=== PATIENT | female | born 1995 | race Caucasian/White ===

== ENCOUNTER 2017-10-06 09:47 | Emergency (ER) | payer OTHER ==
[~2017-10-06] VITALS: Ht 165.1 cm; Wt 104.3 kg
[2017-10-06 11:04] VITALS: BP 118/86
--- NOTE | 2017-10-06 11:19 | NUR ---
PT WHEEL CHAIR ASSISTED BACK TO THE LOBBY AFTER EKG
[2017-10-06 12:52] LABS: BASOPHILS # (AUTO) 0.1 K/uL (0.00-0.22); BASOPHILS % (AUTO) 1.3 % (0.0-2.0); EOSINOPHILS # (AUTO) 0.3 K/uL (0-0.4); EOSINOPHILS % (AUTO) 2.6 % (0.0-4.0); HEMATOCRIT 41.2 % (36-48); HEMOGLOBIN 13.8 g/dL (12.0-16.0); LYMPHOCYTES # (AUTO) 2.2 K/uL (2.5-16.5); LYMPHOCYTES % (AUTO) 19.4 % (20.5-51.1); MEAN CORPUSCULAR HEMOGLOBIN 30 pg (27-31); MEAN CORPUSCULAR HGB CONC 34 g/dL (33-37); MEAN CORPUSCULAR VOLUME 91 fL (80-94); MONOCYTES # (AUTO) 0.4 K/uL (0.8-1.0); MONOCYTES % (AUTO) 3.2 % (1.7-9.3); NEUTROPHILS # (AUTO) 8.2 K/uL (1.8-7.7); NEUTROPHILS % (AUTO) 73.5 % (42.2-75.2); PLATELET COUNT (AUTO) 301 K/uL (140-450); RED BLOOD CELL COUNT(AUTO) 4.55 MIL/uL (4.20-5.40); RED CELL DISTRIBUTION WIDTH 13.1 % (11.6-13.7); WHITE BLOOD COUNT (AUTO) 11.2 K/uL (4.5-11.0)
[2017-10-06 13:05] LABS: ANION GAP 10.3 (8-16); POTASSIUM 4.3 mmol/L (3.5-5.1)
[2017-10-06 13:11] LABS: ALBUMIN 3.6 g/dL (3.4-5.0); TOTAL BILIRUBIN 0.4 mg/dL (0.0-1.0)
--- NOTE | 2017-10-06 14:59 | NUR ---
PATIENT TO OF3
--- NOTE | 2017-10-06 15:00 | NUR ---
PATIENT PRESENTS TO ED WITH C/O LUQ PAIN WITH VOMITING YESTERDAY WITH CP; DENIES V/D TODAY;DENIES ANY MEDICAL HX;SKIN IS PINK/WARM/DRY; AAOX4 WITH EVEN AND STEADY GAIT; LUNGS CLEAR BL; HR EVEN AND REGULAR; PT DENIES ANY FEVER,SOB, OR COUGH AT THIS TIME; PATIENT STATES PAIN OF 8/10 AT THIS TIME;PATIENT POSITIONED FOR COMFORT; ER MD MADE AWARE OF PT STATUS.
--- NOTE | 2017-10-06 15:53 | NUR ---
Janie beckham in [facility] - 10/06/17 at 1554 by BERNICE PATIENT TO 3
--- NOTE | 2017-10-06 15:53 | NUR ---
DR. SEPULVEDA EVALUATING PATIENT
[2017-10-06 16:15] VITALS: BP 127/65
--- NOTE | 2017-10-06 16:15 | NUR ---
Patient discharged with v/s stable. Written and verbal after care instructions given and explained. Patient alert, oriented and verbalized understanding of instructions. Ambulatory with steady gait. All questions addressed prior to discharge. ID band removed. Patient advised to follow up with PMD. Rx of PREDNISONE AND CIPRO. given. Patient educated on indication of medication including possible reaction and side effects. Opportunity to ask questions provided and answered.
== END 2017-10-06 16:15 | disposition home or self-care (01) ==
LOC: MED 09:47
DX: N39.0 Urinary tract infection, site not specified (principal); R07.9 Chest pain, unspecified; R10.12 Left upper quadrant pain; Z87.891 Personal history of nicotine dependence
CPT/HCPCS: 36415; 80053; 81002; 81025; 83690; 85025; 87086; 87186; 93005; 99285